=== PATIENT | female | born 1980 | race Caucasian/White ===

== ENCOUNTER 2017-12-13 17:01 | Inpatient (IN) | payer BC, OTHER ==
[2017-12-13] VITALS (9 sets, daily range): BP systolic 100–126; BP diastolic 53–75; PULSE 87–125; RESP 18–20; TEMP 98.3–100.9; O2SAT 96–100
[~2017-12-13 17:01] MED LIST: ADDE5TAB PO; IBUP600T26 PO; ROBA750T3 PO
[2017-12-13] MEDS ORDERED: IBUPROFEN 600 MG TAB PO ONE (17:15)
[2017-12-13] MEDS ORDERED: ADDE30XR PO (17:17)
--- NOTE | 2017-12-13 18:01 | PD ---
HPI Chief Complaint: Cold / Flu Symptoms Time Seen by Provider: 17:43 Travel History International Travel<30 days: No Contact w/Intl Traveler<30days: No Traveled to known affect area: No History of Present Illness HPI 37-year-old female presents sudden onset of fever, body aches, chills, sore throat that developed at about 1 PM this afternoon. She denies taking medication prior to arrival. She denies any other concurrent complaints to me on initial evaluation. She denies any specific sick contacts. She states she feels worse when she moves around. PFSH Past Medical History ADHD: Yes Cerebrovascular Accident: No Diabetes: No Reproductive: Yes Myocardial Infarction: No Seizures: No Tetanus Vaccination: > 5 Years Influenza Vaccination: No ?: Unknown LMP: NOV 23 2017 Past Surgical History Surgical History: No Previous Surgery Social History Alcohol Use: No Tobacco Use: Yes (1 07/01-1 PPD) Substance Use: No Allergies-Medications (Allergen,Severity, Reaction): Coded Allergies: No Known Allergies (Unverified Allergy, Unknown, 12/13/17) Reported Meds & Prescriptions Reported Meds & Active Scripts Active Reported Adderall Xr 24 HR (Amphetamine/Dextroamphetamine) 30 Mg Cap 60 Mg PO DAILY Once daily in the morning. Review of Systems Except as stated in HPI: all other systems reviewed are Neg Physical Exam Narrative GENERAL: 37-year-old female who appears uncomfortable SKIN: Focused skin assessment warm/dry. HEAD: Atraumatic. Normocephalic. EYES: Pupils equal and round. No scleral icterus. No injection or drainage. ENT: No nasal bleeding or discharge. Mucous membranes pink and moist. Posterior oropharynx without exudate or erythema NECK: Trachea midline. No JVD. No meningeal signs CARDIOVASCULAR: Regular rate and rhythm. No murmur appreciated. RESPIRATORY: No accessory muscle use. Clear to auscultation. Breath sounds equal bilaterally. GASTROINTESTINAL: Abdomen soft, non-tender, nondistended. Hepatic and splenic margins not palpable. MUSCULOSKELETAL: No obvious deformities. No clubbing. No cyanosis. No edema. NEUROLOGICAL: Awake and alert. No obvious cranial nerve deficits. Motor grossly within normal limits. Normal speech. Data Data Last Documented VS Vital Signs Date Time Temp Pulse Resp B/P (MAP) Pulse Ox O2 Delivery O2 Flow Rate FiO2 12/13/17 20:20 100.4 103 18 113/59 (77) 100 Room Air Orders Orders Ibuprofen (Motrin) (12/13/17 17:15) Group A Rapid Strep Screen (12/13/17 17:23) Influenzae A/B Antigen (12/13/17 17:23) Urinalysis - C+S If Indicated (12/13/17 17:49) Chest, Pa & Lat (12/13/17 ) Strep Culture (Group A) (12/13/17 17:30) Ed Urine Pregnancytest Poc (12/13/17 18:01) Complete Blood Count With Diff (12/13/17 18:58) Comprehensive Metabolic Panel (12/13/17 18:58) Lactic Acid Sepsis Protocol (12/13/17 18:58) Magnesium (Mg) (12/13/17 18:58) Phosphorus (Po4) (12/13/17 18:58) Blood Culture (12/13/17 18:58) Ecg Monitoring (12/13/17 18:58) Iv Access Insert/Monitor (12/13/17 18:58) Oximetry (12/13/17 18:58) Creatine Kinase (Cpk) (12/13/17 18:58) Sodium Chlor 0.9% 1000 Ml Inj (Ns 1000 M (12/13/17 19:00) ^ Straight Catheter (12/13/17 21:01) Cath For Specimen (12/13/17 21:01) Admit Order (Ed Use Only) (12/13/17 21:36) Labs Laboratory Tests Test 12/13/17 19:25 12/13/17 21:10 White Blood Count 12.7 TH/MM3 Red Blood Count 4.20 MIL/MM3 Hemoglobin 13.6 GM/DL Hematocrit 38.7 % Mean Corpuscular Volume 92.2 FL Mean Corpuscular Hemoglobin 32.3 PG Mean Corpuscular Hemoglobin Concent 35.0 % Red Cell Distribution Width 11.8 % Platelet Count 190 TH/MM3 Mean Platelet Volume 7.7 FL Neutrophils (%) (Auto) 89.9 % Lymphocytes (%) (Auto) 7.7 % Monocytes (%) (Auto) 1.9 % Eosinophils (%) (Auto) 0.1 % Basophils (%) (Auto) 0.4 % Neutrophils # (Auto) 11.4 TH/MM3 Lymphocytes # (Auto) 1.0 TH/MM3 Monocytes # (Auto) 0.2 TH/MM3 Eosinophils # (Auto) 0.0 TH/MM3 Basophils # (Auto) 0.1 TH/MM3 CBC Comment DIFF FINAL Differential Comment Blood Urea Nitrogen 8 MG/DL Creatinine 0.74 MG/DL Random Glucose 101 MG/DL Total Protein 7.2 GM/DL Albumin 3.6 GM/DL Calcium Level 8.5 MG/DL Phosphorus Level 1.5 MG/DL Magnesium Level 2.1 MG/DL Alkaline Phosphatase 55 U/L Aspartate Amino Transf (AST/SGOT) 10 U/L Alanine Aminotransferase (ALT/SGPT) 16 U/L Total Bilirubin 0.9 MG/DL Sodium Level 137 MEQ/L Potassium Level 3.5 MEQ/L Chloride Level 105 MEQ/L Carbon Dioxide Level 22.6 MEQ/L Anion Gap 9 MEQ/L Estimat Glomerular Filtration Rate 87 ML/MIN Lactic Acid Level 0.9 mmol/L Total Creatine Kinase 60 U/L Urine Color YELLOW Urine Turbidity CLEAR Urine pH 8.0 Urine Specific [place] 1.010 Urine Protein NEG mg/dL Urine Glucose (UA) NEG mg/dL Urine Ketones 80 OR GREATER mg/dL Urine Occult Blood NEG Urine Nitrite NEG Urine Bilirubin NEG Urine Urobilinogen 2.0 MG/DL Urine Leukocyte Esterase NEG Urine Squamous Epithelial Cells 0-5 /hpf Microscopic Urinalysis Comment CULT NOT INDICATED MDM Medical Decision Making Medical Screen Exam Complete: Yes Emergency Medical Condition: Yes Medical Record Reviewed: Yes (pmh confirmed) Interpretation(s) strep and flu are negative Differential Diagnosis Pneumonia, UTI, pharyngitis, URI Narrative Course We will check strep, influenza, urinalysis, chest x-ray and dose with Motrin and reevaluate patient states her body aches are much worse and her muscles are tightening too much, will add on labs to rule out other process Physician Communication Physician Communication dr mixon to follow labs and ua and reevaluate Adamaris Taylor MD Dec 13, 2017 18:01
--- NOTE | 2017-12-13 18:26 | RADRPT ---
EXAM DATE: 12/13/2017 6:22 PM EDT AGE/SEX: 37 years / Female INDICATIONS: Fever, all over body pain, unable to feel hands and feet or move arms or legs CLINICAL DATA: This is the patient's initial encounter. Patient reports that signs and symptoms have been present for 1 day and indicates a pain score of 10/10. MEDICAL/SURGICAL HISTORY: None. None. COMPARISON: No prior exams available for comparison. FINDINGS: PA and lateral views of the chest demonstrate the lungs to be symmetrically aerated without evidence of mass, infiltrate or effusion. The cardiomediastinal contours are unremarkable. Osseous structures are intact. CONCLUSION: No active disease. Electronically signed by: Farzad Miranda MD 12/13/2017 6:24 PM EDT
[2017-12-13] MEDS ORDERED: SODIUM CHLOR 0.9% 1000 ML INJ 1,000 ML IV ONE (19:00)
[2017-12-13 19:41] LABS: AUTOMATED NEUTROPHIL # 11.4 TH/MM3 (1.8-7.7); BASOPHIL # 0.1 TH/MM3 (0-0.2); BASOPHIL % 0.4 % (0.0-2.0); EOSINOPHIL % 0.1 % (0.0-4.0); HEMATOCRIT 38.7 % (35.0-46.0); HEMOGLOBIN 13.6 GM/DL (11.6-15.3); LYMPH % 7.7 % (9.0-44.0); MEAN CELL VOLUME 92.2 FL (80.0-100.0); MEAN CORPUSCULAR HEMOGLOBIN 32.3 PG (27.0-34.0); MEAN PLATELET VOLUME 7.7 FL (7.0-11.0); MONO % 1.9 % (0.0-8.0); MONOCYTE # 0.2 TH/MM3 (0-0.9); NEUT % 89.9 % (16.0-70.0); PLATELET COUNT 190 TH/MM3 (150-450); RED CELL DISTRIBUTION WIDTH 11.8 % (11.6-17.2); WHITE BLOOD COUNT 12.7 TH/MM3 (4.0-11.0)
[2017-12-13 19:51] LABS: CHLORIDE 105 MEQ/L (98-107); SODIUM (NA) 137 MEQ/L (136-145)
[2017-12-13 19:55] LABS: ALBUMIN 3.6 GM/DL (3.4-5.0); BICARBONATE 22.6 MEQ/L (21.0-32.0); BLOOD UREA NITROGEN 8 MG/DL (7-18); CALCIUM 8.5 MG/DL (8.5-10.1); GLUCOSE,RANDOM 101 MG/DL (74-106); MAGNESIUM 2.1 MG/DL (1.5-2.5)
[2017-12-13 19:58] LABS: ALT (GPT) 16 U/L (10-53); AST (GOT) 10 U/L (15-37); CREATININE 0.74 MG/DL (0.50-1.00); GLOMERULAR FILTRATION RATE 87 ML/MIN (>89)
[2017-12-13 19:59] LABS: PHOSPHORUS 1.5 MG/DL (2.5-4.9)
[2017-12-13 20:00] LABS: TOTAL BILIRUBIN ADULT 0.9 MG/DL (0.2-1.0); TOTAL PROTEIN 7.2 GM/DL (6.4-8.2)
[2017-12-13 20:01] LABS: ALKALINE PHOSPHATASE 55 U/L (45-117)
--- NOTE | 2017-12-13 21:09 | PD ---
Physical Exam Time Seen by Provider: 21:02 Narrative The patient was transferred to nm by Dr. Peralta to make a check laboratory results and make a disposition, likely discharge. Data Data Last Documented VS Vital Signs Date Time Temp Pulse Resp B/P (MAP) Pulse Ox O2 Delivery O2 Flow Rate FiO2 12/13/17 20:20 100.4 103 18 113/59 (77) 100 Room Air Orders Orders Ibuprofen (Motrin) (12/13/17 17:15) Group A Rapid Strep Screen (12/13/17 17:23) Influenzae A/B Antigen (12/13/17 17:23) Urinalysis - C+S If Indicated (12/13/17 17:49) Chest, Pa & Lat (12/13/17 ) Strep Culture (Group A) (12/13/17 17:30) Ed Urine Pregnancytest Poc (12/13/17 18:01) Complete Blood Count With Diff (12/13/17 18:58) Comprehensive Metabolic Panel (12/13/17 18:58) Lactic Acid Sepsis Protocol (12/13/17 18:58) Magnesium (Mg) (12/13/17 18:58) Phosphorus (Po4) (12/13/17 18:58) Blood Culture (12/13/17 18:58) Ecg Monitoring (12/13/17 18:58) Iv Access Insert/Monitor (12/13/17 18:58) Oximetry (12/13/17 18:58) Creatine Kinase (Cpk) (12/13/17 18:58) Sodium Chlor 0.9% 1000 Ml Inj (Ns 1000 M (12/13/17 19:00) ^ Straight Catheter (12/13/17 21:01) Cath For Specimen (12/13/17 21:01) Labs Laboratory Tests Test 12/13/17 19:25 White Blood Count 12.7 TH/MM3 Red Blood Count 4.20 MIL/MM3 Hemoglobin 13.6 GM/DL Hematocrit 38.7 % Mean Corpuscular Volume 92.2 FL Mean Corpuscular Hemoglobin 32.3 PG Mean Corpuscular Hemoglobin Concent 35.0 % Red Cell Distribution Width 11.8 % Platelet Count 190 TH/MM3 Mean Platelet Volume 7.7 FL Neutrophils (%) (Auto) 89.9 % Lymphocytes (%) (Auto) 7.7 % Monocytes (%) (Auto) 1.9 % Eosinophils (%) (Auto) 0.1 % Basophils (%) (Auto) 0.4 % Neutrophils # (Auto) 11.4 TH/MM3 Lymphocytes # (Auto) 1.0 TH/MM3 Monocytes # (Auto) 0.2 TH/MM3 Eosinophils # (Auto) 0.0 TH/MM3 Basophils # (Auto) 0.1 TH/MM3 CBC Comment DIFF FINAL Differential Comment Blood Urea Nitrogen 8 MG/DL Creatinine 0.74 MG/DL Random Glucose 101 MG/DL Total Protein 7.2 GM/DL Albumin 3.6 GM/DL Calcium Level 8.5 MG/DL Phosphorus Level 1.5 MG/DL Magnesium Level 2.1 MG/DL Alkaline Phosphatase 55 U/L Aspartate Amino Transf (AST/SGOT) 10 U/L Alanine Aminotransferase (ALT/SGPT) 16 U/L Total Bilirubin 0.9 MG/DL Sodium Level 137 MEQ/L Potassium Level 3.5 MEQ/L Chloride Level 105 MEQ/L Carbon Dioxide Level 22.6 MEQ/L Anion Gap 9 MEQ/L Estimat Glomerular Filtration Rate 87 ML/MIN Lactic Acid Level 0.9 mmol/L Total Creatine Kinase 60 U/L [facility] Medical Record Reviewed: Yes Supervised Visit with CHAN: No Interpretation(s) The CBC is 12,700 with 90% neutrophils. The complete metabolic profile shows a GFR of 87 but is otherwise normal. The phosphorus is 1.5. The lactic acid is normal at 0.9. The strep screen is negative and the flu test is negative. Differential Diagnosis Sepsis, anxiety, flu syndrome, viral syndrome, pneumonia, strep pharyngitis, conversion reaction Narrative Course The patient is also going through a separation from her about for 5 months. She went out apparently and contracted gonorrhea and she was treated for this 3 weeks ago. The patient complains of aching pains in her legs and joints and arms. Later on she said she cannot move her arms, she cannot pick them up and she cannot move her legs, she did not pick them up. She has good sensation to her arms and legs. The hand drop into face test showed that the patient held her arm up so that the hand did not hit her face. This was done on both arms. We cannot find the source of her infection. The patient will be admitted for 23 hour observation. Blood cultures are pending. I discussed the patient with Dr. Douglas, the patient will be 23 hour observation to her. The patient does have a conversion reaction and cannot walk or move her arms so at this point she cannot go home. Sepsis Criteria SIRS Criteria (2 or more): Heart rate over 90, WBC > 50944, < 4000 or > 10% bands Criteria Outcome: Meets SIRS criteria Physician Communication Physician Communication I discussed the patient with Dr. Douglas, the patient will be admitted to her. Diagnosis Primary Impression: SIRS (systemic inflammatory response syndrome) Additional Impressions: Conversion reaction Inability to move arms or legs Admitting Information Admitting Physician Requests: Observation Rafael Morris MD Dec 13, 2017 21:08
[2017-12-13] MEDS ORDERED: BISACODYL 10 MG SUPP RECTAL PRN (21:45)
[2017-12-13] MEDS ORDERED: SODIUM CHLORIDE 0.9% FLUSH 10 ML FLUSH IV FLUSH PRN (21:45)
[2017-12-13] MEDS ORDERED: LACTULOSE SYRUP 20 GM/30 ML CUP PO PRN (21:45)
[2017-12-13] MEDS ORDERED: MAGNESIUM HYDROXIDE SUSP 30 ML CUP PO PRN (21:45)
[2017-12-13] MEDS ORDERED: SENNOSIDES 8.6 MG TAB PO PRN (21:45)
[2017-12-13 21:58] LABS: BILIRUBIN, URINE NEG (NEG); BLOOD, URINE NEG (NEG); GLUCOSE,URINE NEG (NEG); KETONE, URINE 80 OR GREATER mg/dL (NEG); NITRITE,URINE NEG (NEG); URINE COLOR YELLOW (YELLW/STRAW); URINE LEUKOCYTE ESTERASE NEG (NEG)
[2017-12-13 22:11] LABS: SQUAMOUS EPITHELIAL CELL URINE 0-5 /hpf (0-5)
[2017-12-13] MEDS: SODIUM CHLOR 0.9% 1000 ML INJ 1,000 ML IV SCH (22:24)
[2017-12-13] MEDS: ALPRAZolam 0.25 MG TAB PO PRN (22:24)
[2017-12-14 04:00] VITALS: BP_SYST 100; BP_SYST 131; BP_DIAS 79; PULSE 112; RESP 13; RESP 20; TEMP 101.7; O2SAT 98
[2017-12-14] MEDS: ACETAMINOPHEN 325 MG TAB PO PRN ×2 (05:09→14:16)
[2017-12-14 07:27] VITALS: BP 108/55; PULSE 99; RESP 20; TEMP 98.6; O2SAT 99
[2017-12-14 07:34] LABS: BASOPHIL % 0.1 % (0.0-2.0); EOSINOPHIL % 0.1 % (0.0-4.0); HEMATOCRIT 38.3 % (35.0-46.0); HEMOGLOBIN 12.7 GM/DL (11.6-15.3); LYMPH % 4.8 % (9.0-44.0); LYMPHOCYTE # 0.6 TH/MM3 (1.0-4.8); MEAN CELL VOLUME 93.3 FL (80.0-100.0); MEAN CORPUSCULAR HEMOGLOBIN 30.9 PG (27.0-34.0); MEAN CORPUSCULAR HGB CONC 33.1 % (32.0-36.0); MONO % 3.4 % (0.0-8.0); MONOCYTE # 0.4 TH/MM3 (0-0.9); NEUT % 91.6 % (16.0-70.0); PLATELET COUNT 173 TH/MM3 (150-450); RED BLOOD COUNT 4.11 MIL/MM3 (4.00-5.30); RED CELL DISTRIBUTION WIDTH 11.7 % (11.6-17.2)
[2017-12-14] MEDS: SODIUM CHLOR 0.9% 1000 ML INJ 1,000 ML IV SCH ×2 (07:39→20:26)
[2017-12-14 07:47] LABS: CHLORIDE 109 MEQ/L (98-107); SODIUM (NA) 140 MEQ/L (136-145)
[2017-12-14 07:53] LABS: ALBUMIN 3.1 GM/DL (3.4-5.0)
[2017-12-14 07:54] LABS: BICARBONATE 22.2 MEQ/L (21.0-32.0); BLOOD UREA NITROGEN 8 MG/DL (7-18); GLUCOSE,RANDOM 115 MG/DL (74-106)
[2017-12-14 07:57] LABS: ALT (GPT) 11 U/L (10-53); AST (GOT) 11 U/L (15-37); CREATININE 0.69 MG/DL (0.50-1.00); GLOMERULAR FILTRATION RATE 95 ML/MIN (>89)
[2017-12-14 07:58] LABS: TOTAL BILIRUBIN ADULT 0.8 MG/DL (0.2-1.0); TOTAL PROTEIN 6.7 GM/DL (6.4-8.2)
[2017-12-14 07:59] LABS: ALKALINE PHOSPHATASE 51 U/L (45-117)
--- NOTE | 2017-12-14 08:11 | HHI.HP ---
[facility] Papito Mcmullen, DO Admission Diagnosis SIRS, conversion reaction, inability to move arms or legs Diagnoses: (1) SIRS (systemic inflammatory response syndrome) Chief Complaint: Fever Chills Sore throat Vaginal discharge Travel History International Travel<30 Days: No Contact w/Intl Traveler <30 Da: No Traveled to Known Affected Are: No Sepsis Criteria SIRS Criteria (2 or more): Temp > 100.9 or < 96.8, Heart rate over 90, WBC > 62023, < 4000 or > 10% bands Criteria Outcome: Meets SIRS criteria History of Present Illness This is a 37-year-old female patient with a known medical history of ADHD presented to the ED with sudden onset of fever, chills, sore throat and generalized muscle aches as well as continued vaginal discharge from recent diagnosis of gonorrhea. Patient was recently treated for gonorrhea 2 weeks ago , finished dose of azithromycin completely as well as given 1 dose of Rocephin IM. Since that time patient states she did feel improved after antibiotics although her vaginal discharge continued. She does admit to a subjective fever of 101 at home. She does admit to poor appetite for the last couple days. Does admit to associated fever, chills, rigors, dizziness. She denies any dysuria. Denies any nausea, vomiting or diarrhea. Patient does not follow with the [employer], denies any recent pelvic exam or Pap smear. It should be noted that patient is going through a separation with her and has recently been with a new sex partner. LMP was November 23, 2017. She is having active vaginal bleeding at this time. Review of Systems Constitutional: COMPLAINS OF: Diaphoretic episodes, Fatigue, Fever, Chills Eyes: DENIES: Diplopia Ears, nose, mouth, throat: DENIES: Vertigo Respiratory: DENIES: Cough, Sputum production, Shortness of breath Cardiovascular: DENIES: Chest pain, Palpitations, Orthopnea Gastrointestinal: COMPLAINS OF: Abdominal pain, Nausea, Vomiting, DENIES: Black stools, Bloody stools, Constipation, Diarrhea Genitourinary: COMPLAINS OF: Vaginal discharge, DENIES: Urinary frequency, Urinary incontinence, Urgency, Hematuria, Dysuria Musculoskeletal: COMPLAINS OF: Joint pain, Muscle aches Hematologic/lymphatic: DENIES: Bruising Immunologic/allergic: DENIES: Eczema Neurologic: DENIES: Abnormal gait Psychiatric: COMPLAINS OF: Anxiety Except as stated in HPI: all other systems reviewed are Neg Past Family Social History Past Medical History ADHD Past Surgical History No previous surgeries. Reported Medications Active Reported Adderall Xr 24 HR (Amphetamine/Dextroamphetamine) 30 Mg Cap 60 Mg PO DAILY Once daily in the morning. Allergies: Coded Allergies: No Known Allergies (Unverified Allergy, Unknown, 12/13/17) Active Ordered Medications Current Medications Medications (Trade) Dose Ordered Sig/Roselia Route Start Time Stop Time Status Last Admin (Xanax) 0.25 mg Q8H PRN PO 12/13/17 21:45 12/13/17 22:24 Sodium Chloride 1,000 ml @ 100 mls/hr Q10H IV 12/13/17 21:39 12/14/17 07:39 (NS Flush) 2 ml UNSCH PRN IV FLUSH 12/13/17 21:45 (NS Flush) 2 ml BID IV FLUSH 12/14/17 09:00 (Tylenol) 650 mg Q6H PRN PO 12/13/17 21:45 12/14/17 05:09 (Ely-Colace) 1 tab BID PO 12/14/17 09:00 (Milk Of Magnesia Liq) 30 ml Q12H PRN PO 12/13/17 21:45 (Senokot) 17.2 mg Q12H PRN PO 12/13/17 21:45 (Dulcolax Supp) 10 mg DAILY PRN RECTAL 12/13/17 21:45 (Lactulose Liq) 30 ml DAILY PRN PO 12/13/17 21:45 Doxycycline Hyclate 100 mg/ Sodium Chloride 100 ml @ 100 mls/hr Q12H IV 12/14/17 09:00 12/14/17 09:01 (Mycostatin Liq) 5 ml QID SWISH-SWAL 12/14/17 09:00 12/14/17 09:02 (Diflucan) 150 mg DAILY PO 12/14/17 09:00 12/14/17 09:01 Ceftriaxone Sodium 1000 mg/ Sodium Chloride 100 ml @ 200 mls/hr Q24H IV 12/14/17 09:00 Family History Denies any significant family medical history. Social History Does admit to smoking 1 pack per day of cigarettes for 22 years. Denies any alcohol or illicit drug use. Physical Exam Vital Signs Vital Signs Date Time Temp Pulse Resp B/P (MAP) Pulse Ox O2 Delivery O2 Flow Rate FiO2 12/14/17 07:27 98.6 99 20 108/55 (72) 99 12/14/17 04:00 101.7 112 20 131/79 (96) 98 12/14/17 04:00 101.7 112 13 100/ 12/13/17 23:00 88 12/13/17 22:20 98.3 87 20 100/63 (75) 100 12/13/17 22:05 12/13/17 21:45 94 18 111/53 (72) 97 Room Air 12/13/17 20:20 100.4 103 18 113/59 (77) 100 Room Air 12/13/17 19:20 18 96 Room Air 12/13/17 19:20 101 18 119/65 (83) 97 Room Air 12/13/17 19:10 101 18 97 Room Air 12/13/17 18:53 99.8 102 18 108/75 (86) 100 Room Air 12/13/17 17:19 100 Room Air 12/13/17 17:17 100.7 120 18 126/71 (89) 100 Room Air 12/13/17 17:15 Room Air 12/13/17 17:03 100.7 125 20 126/71 (89) Physical Exam GENERAL: Well-developed, well-nourished patient in NAD. Multiple tattoos. Tearful. SKIN: Warm and dry. No rash. HEAD: Normocephalic. Atraumatic. EYES: Pupils equal and round. No scleral icterus. No injection or drainage. ENT: No nasal bleeding or discharge. Mucous membranes, erythema noted, oral thrush, white exudates noted. NECK: Supple. Trachea midline. CARDIOVASCULAR: Regular rate and rhythm. S1, S2 noted. No murmur appreciated. RESPIRATORY: No accessory muscle use. Clear to auscultation. Breath sounds equal bilaterally. GASTROINTESTINAL: Abdomen soft, nondistended. Normoactive bowel sounds x4. Diffuse tenderness to palpation. MUSCULOSKELETAL: No obvious deformities. Extremities without clubbing, cyanosis , or edema. NEUROLOGICAL: Awake and alert. No obvious cranial nerve deficits. Motor grossly within normal limits. 4/5 muscle strength in bilateral upper and lower extremities. Normal speech. Laboratory Laboratory Tests Test 12/13/17 19:25 12/13/17 21:10 12/14/17 06:49 White Blood Count 12.7 12.0 Red Blood Count 4.20 4.11 Hemoglobin 13.6 12.7 Hematocrit 38.7 38.3 Mean Corpuscular Volume 92.2 93.3 Mean Corpuscular Hemoglobin 32.3 30.9 Mean Corpuscular Hemoglobin Concent 35.0 33.1 Red Cell Distribution Width 11.8 11.7 Platelet Count 190 173 Mean Platelet Volume 7.7 8.0 Neutrophils (%) (Auto) 89.9 91.6 Lymphocytes (%) (Auto) 7.7 4.8 Monocytes (%) (Auto) 1.9 3.4 Eosinophils (%) (Auto) 0.1 0.1 Basophils (%) (Auto) 0.4 0.1 Neutrophils # (Auto) 11.4 11.0 Lymphocytes # (Auto) 1.0 0.6 Monocytes # (Auto) 0.2 0.4 Eosinophils # (Auto) 0.0 0.0 Basophils # (Auto) 0.1 0.0 CBC Comment DIFF FINAL DIFF FINAL Differential Comment Blood Urea Nitrogen 8 8 Creatinine 0.74 0.69 Random Glucose 101 115 Total Protein 7.2 6.7 Albumin 3.6 3.1 Calcium Level 8.5 8.0 Phosphorus Level 1.5 Magnesium Level 2.1 Alkaline Phosphatase 55 51 Aspartate Amino Transf (AST/SGOT) 10 11 Alanine Aminotransferase (ALT/SGPT) 16 11 Total Bilirubin 0.9 0.8 Sodium Level 137 140 Potassium Level 3.5 3.6 Chloride Level 105 109 Carbon Dioxide Level 22.6 22.2 Anion Gap 9 9 Estimat Glomerular Filtration Rate 87 95 Lactic Acid Level 0.9 Total Creatine Kinase 60 Urine Color YELLOW Urine Turbidity CLEAR Urine pH 8.0 Urine Specific [place] 1.010 Urine Protein NEG Urine Glucose (UA) NEG Urine Ketones 80 OR GREATER Urine Occult Blood NEG Urine Nitrite NEG Urine Bilirubin NEG Urine Urobilinogen 2.0 Urine Leukocyte Esterase NEG Urine Squamous Epithelial Cells 0-5 Microscopic Urinalysis Comment CULT NOT INDICATED Date/Time Source Procedure Growth Status 12/13/17 19:32 Blood Peripheral Aerobic Blood Culture Pending Received 12/13/17 19:32 Blood Peripheral Anaerobic Blood Culture Pending Received 12/13/17 17:30 Throat Group A Streptococcus Screen Pending Received Result Diagram: 12/14/17 0649 12/14/17 0649 Imaging Last Impressions Chest X-Ray 12/13/17 0000 Signed Impressions: CONCLUSION: No active disease. Septic Shock Reassessment Septic shock perfusion: reassessment completed Caprini VTE Risk Assessment Caprini VTE Risk Assessment: No/Low Risk (score <= 1) Caprini Risk Assessment Model Point Value = 1 Point Value = 2 Point Value = 3 Point Value = 5 Age 41-60 Minor surgery BMI > 25 kg/m2 Swollen legs Varicose veins or History of unexplained or recurrent spontaneous Oral contraceptives or hormone replacement Sepsis (< 1 month) Serious lung disease, including pneumonia (< 1 month) Abnormal pulmonary function Acute myocardial infarction Congestive heart failure (< 1 month) History of inflammatory bowel disease Medical patient at bed rest Age 61-74 Arthroscopic surgery Major open surgery (> 45 min) Laparoscopic surgery (> 45 min) Malignancy Confined to bed (> 72 hours) Immobilizing plaster cast Central venous access Age >= 75 History of VTE Family history of VTE Factor V Leiden Prothrombin [id number] Lupus anticoagulant Anticardiolipin antibodies Elevated serum homocysteine Heparin-induced thrombocytopenia Other congenital or acquired thrombophilia Stroke (< 1 month) Elective arthroplasty Hip, pelvis, or leg fracture Acute spinal cord injury (< 1 month) Prophylaxis Regimen Total Risk Factor Score Risk Level Prophylaxis Regimen 0-1 Low Early ambulation 2 Moderate Order ONE of the following: *Sequential Compression Device (SCD) *Heparin 5000 units SQ BID 3-4 Higher Order ONE of the following medications: *Heparin 5000 units SQ TID *Enoxaparin/Lovenox 40 mg SQ daily (WT < 150 kg, CrCl > 30 mL/min) *Enoxaparin/Lovenox 30 mg SQ daily (WT < 150 kg, CrCl > 10-29 mL/min) *Enoxaparin/Lovenox 30 mg SQ BID (WT < 150 kg, CrCl > 30 mL/min) AND/OR *Sequential Compression Device (SCD) 5 or more Highest Order ONE of the following medications: *Heparin 5000 units SQ TID (Preferred with Epidurals) *Enoxaparin/Lovenox 40 mg SQ daily (WT < 150 kg, CrCl > 30 mL/min) *Enoxaparin/Lovenox 30 mg SQ daily (WT < 150 kg, CrCl > 10-29 mL/min) *Enoxaparin/Lovenox 30 mg SQ BID (WT < 150 kg, CrCl > 30 mL/min) AND *Sequential Compression Device (SCD) Assessment and Plan Assessment and Plan This is a 37-year-old female patient with a known medical history of ADHD presented to the ED with sudden onset of fever, chills, sore throat and generalized muscle aches as well as continued vaginal discharge from recent diagnosis of gonorrhea. SIRS - Recent outpatient treatment for gonorrhea with Azithromycin and Rocephin IM. Rule out possible PID. - Meets criteria with fever, 101.7, tachycardiac and leukocytosis WBC 12.7. Source unknown at this time, suspect [employer] related - Will obtain abdominal/pelvis CT for diffuse abdominal tenderness and reports of vaginal discharge. Follow report. - Consult placed to [employer], input and recommendations pending. As well as US of pelvis. - Will check HIV and Hepatitis panel. As well as PCR gonorrhea and chlamydia. - Blood cultures pending, follow growth. UA negative. Chest x-ray reviewed, no acute disease. - Will place on Doxycycline and Rocephin IV for now. Patient did complete Azithromycin and one dose of Rocephin IM outpatient. - Acetaminophen for fever as needed. Oral thrust Throat exudates - Will order Nystatin s&s. Diflucan for now. Anxiety: Continue home Xanax. DVT prophylaxis: SCDs. Joanna Villavicencio Dec 14, 2017 08:11
[2017-12-14] MEDS: SODIUM CHLORIDE 0.9% FLUSH 10 ML FLUSH IV FLUSH SCH ×2 (09:00→20:26)
[2017-12-14] MEDS ORDERED: DOXYCYCLINE INJ 100 MG in SODIUM CHLORIDE 0.9% INJ 100 ML IV SCH (09:00)
[2017-12-14] MEDS: DOCUSATE SODIUM 50 MG/SENNA 8.6 MG TAB PO SCH ×2 (09:00→20:26)
[2017-12-14] MEDS: FLUCONAZOLE 100 MG TAB PO SCH (09:01)
[2017-12-14] MEDS: NYSTATIN SUSP 500,000 U/5 ML CUP SWISH-SWAL SCH ×4 (09:02→20:26)
[2017-12-14] MEDS: cefTRIAXone INJ 1,000 MG in SODIUM CHLORIDE 0.9% INJ 100 ML IV SCH (10:07)
--- NOTE | 2017-12-14 11:15 | PD.CONS ---
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 Patient states that 2 weeks ago she was treated empirically by her PCP Dr. Gold for gonorrhea, she never tested positive but has been active with her (who she is but not from) without protection who did test positive. She was treated with Rocephin and azithromycin per her report. At that time she had abdominal pain but denies any fever, she states that her discharge improved but she still had low-grade pelvic pain. Over the past week she has been feeling abdominal discomfort, lower extremity soreness, chills, fever and dizzy. She has decreased appetite and some nausea, no emesis diarrhea constipation, denies cough, congestion or chest pain. She does say that her sore throat and her lower back pain are the most bothersome symptoms at this time. She denies any dysuria, urgency or frequency. She denies any history of STI's, in the past months she has been active with 3- 4 new partners using condoms inconsistently. She does not use anything other than condoms to prevent . She does not desire any for future children. She has not seen a appliance technician in over 11 years. She has regular monthly cycles, however she states her current cycle is happening a week earlier than she typically expects. Review of Systems Constitutional: DENIES: Fever, Chills, Change in appetite Endocrine: DENIES: Heat/cold intolerance Eyes: DENIES: Blurred vision, Eye pain Past Family Social History Allergies: Coded Allergies: No Known Allergies (Unverified Allergy, Unknown, 12/13/17) Past Medical History 1. ADHD 2. Tobacco use Past Surgical History None Reported Medications Adderall Family History Denies any significant family history. Social History Smokes 1-1-1/2 packs per day, denies any excessive alcohol or drug use. Lives in [place], is but from her [place]. 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 [employer] MAN history: -LMP: Current, typically has regular monthly cycles. -Denies any history of known STI's. -Denies any history of abnormal Pap smears, but she states her most recent was 11 years ago. Physical Exam Vital Signs Vital Signs Date Time Temp Pulse Resp B/P (MAP) Pulse Ox O2 Delivery O2 Flow Rate FiO2 12/14/17 07:27 98.6 99 20 108/55 (72) 99 12/14/17 04:00 101.7 112 20 131/79 (96) 98 12/14/17 04:00 101.7 112 13 100/ 12/13/17 23:00 88 12/13/17 22:20 98.3 87 20 100/63 (75) 100 12/13/17 22:05 12/13/17 21:45 94 18 111/53 (72) 97 Room Air 12/13/17 20:20 100.4 103 18 113/59 (77) 100 Room Air 12/13/17 19:20 18 96 Room Air 12/13/17 19:20 101 18 119/65 (83) 97 Room Air 12/13/17 19:10 101 18 97 Room Air 12/13/17 18:53 99.8 102 18 108/75 (86) 100 Room Air 12/13/17 17:19 100 Room Air 12/13/17 17:17 100.7 120 18 126/71 (89) 100 Room Air 12/13/17 17:15 Room Air 12/13/17 17:03 100.7 125 20 126/71 (89) Physical Exam GENERAL: This is a well-nourished, well-developed patient, in no apparent distress. SKIN: No rashes, ecchymoses or lesions. Cool and dry. HEAD: Atraumatic. Normocephalic. No temporal or scalp tenderness. EYES: Pupils equal round and reactive. Extraocular motions intact. No scleral icterus. No injection or drainage. NECK: Trachea midline. No JVD or lymphadenopathy. Supple, nontender, no meningeal signs. CARDIOVASCULAR: Regular rate and rhythm without murmurs, gallops, or rubs. RESPIRATORY: Clear to auscultation. Breath sounds equal bilaterally. No wheezes , rales, or rhonchi. GASTROINTESTINAL: Abdomen soft, non-tender, nondistended. No hepato-splenomegaly , or palpable masses. No guarding. : Normal external female genitalia, speculum inserted, liquid dark blood in the posterior fornix, cleared away, cervix normal-appearing, slow ooze but no heavy active bleeding. No purulence. Pelvic exam revealed some cervical motion tenderness, no palpable adnexal masses. MUSCULOSKELETAL: Extremities without clubbing, cyanosis, or edema. No joint tenderness, effusion, or edema noted. No calf tenderness. Negative Homans sign bilaterally. NEUROLOGICAL: Awake and alert. Cranial nerves II through XII intact. Motor and sensory grossly within normal limits. Normal speech. Laboratory Laboratory Tests Test 12/13/17 19:25 12/13/17 21:10 12/14/17 06:49 12/14/17 09:30 White Blood Count 12.7 12.0 Red Blood Count 4.20 4.11 Hemoglobin 13.6 12.7 Hematocrit 38.7 38.3 Mean Corpuscular Volume 92.2 93.3 Mean Corpuscular Hemoglobin 32.3 30.9 Mean Corpuscular Hemoglobin Concent 35.0 33.1 Red Cell Distribution Width 11.8 11.7 Platelet Count 190 173 Mean Platelet Volume 7.7 8.0 Neutrophils (%) (Auto) 89.9 91.6 Lymphocytes (%) (Auto) 7.7 4.8 Monocytes (%) (Auto) 1.9 3.4 Eosinophils (%) (Auto) 0.1 0.1 Basophils (%) (Auto) 0.4 0.1 Neutrophils # (Auto) 11.4 11.0 Lymphocytes # (Auto) 1.0 0.6 Monocytes # (Auto) 0.2 0.4 Eosinophils # (Auto) 0.0 0.0 Basophils # (Auto) 0.1 0.0 CBC Comment DIFF FINAL DIFF FINAL Differential Comment Blood Urea Nitrogen 8 8 Creatinine 0.74 0.69 Random Glucose 101 115 Total Protein 7.2 6.7 Albumin 3.6 3.1 Calcium Level 8.5 8.0 Phosphorus Level 1.5 Magnesium Level 2.1 Alkaline Phosphatase 55 51 Aspartate Amino Transf (AST/SGOT) 10 11 Alanine Aminotransferase (ALT/SGPT) 16 11 Total Bilirubin 0.9 0.8 Sodium Level 137 140 Potassium Level 3.5 3.6 Chloride Level 105 109 Carbon Dioxide Level 22.6 22.2 Anion Gap 9 9 Estimat Glomerular Filtration Rate 87 95 Lactic Acid Level 0.9 Total Creatine Kinase 60 Urine Color YELLOW Urine Turbidity CLEAR Urine pH 8.0 Urine Specific [place] 1.010 Urine Protein NEG Urine Glucose (UA) NEG Urine Ketones 80 OR GREATER Urine Occult Blood NEG Urine Nitrite NEG Urine Bilirubin NEG Urine Urobilinogen 2.0 Urine Leukocyte Esterase NEG Urine Squamous Epithelial Cells 0-5 Microscopic Urinalysis Comment CULT NOT INDICATED Human Chorionic Gonadotropin, Quant LESS THAN 1 Date/Time Source Procedure Growth Status 12/13/17 19:32 Blood Peripheral Aerobic Blood Culture Pending Received 12/13/17 19:32 Blood Peripheral Anaerobic Blood Culture Pending Received 12/13/17 17:30 Throat Group A Streptococcus Screen Pending Received Result Diagram: 12/14/17 0649 12/14/17 0649 Assessment and Plan Assessment and Plan 37-year-old female admitted for fever and suspected PID 1. PID: Patient meets criteria given fever, risk factors, and on exam. Typical treatment involves second-generation cephalosporin such as cefotetan 2 g IV every 12 hours or cefoxitin 2 g IV every 6 hours. In addition doxycycline 100 mg p.o. or IV but p.o. is as bioavailable and efficacious as IV. CT and ultrasound pending, if evidence of tubo-ovarian abscess on imaging or trichomonas/bacterial vaginosis are present on wet prep would recommend adding Flagyl 500 mg p.o. twice daily. Once patient make clinical improvement and afebrile 24 hours consider discontinuing IV antibiotics and transitioning to only p.o. Doxy 100mg PO BID and p.o. Flagyl 500mg PO BID (Flagyl only if needed inpatient) to complete her course of 14 days. -Discussed significance and long-term implications of PID with patient, one being infertility patient does not desire future children but strongly suggested her to consider contraception given her inconsistent condom use. And also chronic pelvic pain that can occur. Patient verbalized understanding -Based on patient's high risk sexual behavior, collected STD screening. Thanks for the consult, I will sign off on the patient, if you have any further questions or concerns please call me at [phone] Asim Ronquillo MD Dec 14, 2017 11:15
[2017-12-14 11:16] VITALS: BP 111/60; PULSE 104; RESP 20; TEMP 100.3; O2SAT 100
[2017-12-14] MEDS: ceFOXitin INJ 2 GM in SODIUM CHLORIDE 0.9% INJ 100 ML IV SCH ×3 (13:23→22:56)
--- NOTE | 2017-12-14 13:46 | RADRPT ---
EXAM DATE: 12/14/2017 1:36 PM EDT AGE/SEX: 37 years / Female INDICATIONS: Fever. Possible PID. CLINICAL DATA: This is the patient's initial encounter. Patient reports that signs and symptoms have been present for 2 days and indicates a pain score of 0/10. MEDICAL/SURGICAL HISTORY: . ADHD. Anxiety. None. COMPARISON: No prior exams available for comparison. MEASUREMENTS: Uterus:__10.5 x 6.2 x 5.3 cm Endometrial Stripe:__9 mm Right Ovary:__ 3.8 x 2.6 x 1.9 cm Left Ovary:__ 3.5 x 2.9 x 2.0 cm FINDINGS: Uterus: The myometrium has a homogeneous echotexture. No endometrial fluid. The endometrial stripe h as a homogeneous hyperechogenicity measuring up to 9 mm. There is a hypoechoic area in the region of the cervix which measures 2.9 x 2.7 cm, of uncertain significance. The cervical abnormality appears h ypoechoic on the transabdominal scan and is almost isoechoic to the surrounding cervical tissue on th e endovaginal exam. Right Ovary: No evidence of mass or dominant cyst. Left Ovary: 1 cm oval cyst. No solid lesions. No increased flow by color Doppler. Other: No free fluid. CONCLUSION: 1. Unusual appearance to the cervix; cannot exclude a 2.9 cm mass. 2. No endometrial fluid. 3. Ovarian cysts measuring 1 cm or less. Electronically signed by: Ashish Upton MD 12/14/2017 1:45 PM EDT
[2017-12-14] MEDS ORDERED: DIATRIZOATE MEGLUM/DIATRIZOATE SOD 9 ML CUP PO ONE (14:15)
--- NOTE | 2017-12-14 14:21 | HHI.PR ---
MOVIE EDITOR Note Note reviewed US report and images, cyst mentioned represent a normal ovarian follicle not an abscess. In regards to cervical mass could be a benign fibroid, do not feel this has any relation to her presenting symptoms or is infectious in nature. Will review CT when that is completed. I placed 2 week FU information for the patient in her discharge section of her chart. Asim Ronquillo MD Dec 14, 2017 14:21
[2017-12-14 15:06] VITALS: BP 110/64; PULSE 100; RESP 20; TEMP 101.2; O2SAT 100
[2017-12-14] MEDS ORDERED: IOHEXOL 350 MG/ML 10 ML VIAL (for RAD DIAG) IVCONTRAST ONE (16:24)
--- NOTE | 2017-12-14 16:53 | RADRPT ---
EXAM DATE: 12/14/2017 4:24 PM EDT AGE/SEX: 37 years / Female INDICATIONS: Fever and all over body aches. Diffuse abdominal pain. CLINICAL DATA: This is the patient's initial encounter. Patient reports that signs and symptoms have been present for 1 day and indicates a pain score of 10/10. MEDICAL/SURGICAL HISTORY: None. None. ORAL CONTRAST: Partial prescribed oral contrast ingested. RADIATION DOSE: 13.12 CTDI (mGy) COMPARISON: No prior exams available for comparison. TECHNIQUE: Multiple contiguous axial images were obtained through the abdomen and pelvis following b olus infusion of 85 ml Omnipaque 350 (iohexol) nonionic water-soluble contrast as a single exam dos e. Partial prescribed oral contrast ingested. Using automated exposure control and adjustment of the mA and/or kV according to patient size, the radiation dose was kept as low as reasonably achievable to obtain optimal diagnostic quality images. FINDINGS: Lower Lungs: The visualized lower lungs are clear. Liver: The liver has a homogeneous density without space-occupying lesion. There is no dilation of th e biliary tree. No calcified gallstones. Spleen: Homogeneous density without enlargement. Pancreas: Unremarkable without mass or calcification. Kidneys: Normal in size and shape. No evidence of mass or hydronephrosis. Adrenal Glands: Calcified left adrenal gland with maintenance of normal morphology suggests prior h emorrhage. The right adrenal is normal in appearance.. Aorta: The aorta and proximal iliac vessels are grossly unremarkable without aneurysmal dilation. Bowel/Mesentery: The bowel loops are grossly unremarkable. The cecum and sigmoid colon have a normal configuration. Abdominal Wall: Intact. Retroperitoneum: No evidence of adenopathy in the retrocrural, para-aortic, or deep pelvic regions. Bladder: Contours are smooth. Reproductive Organs: No abnormal masses or calcifications seen.Reproductive organs are normal for ag e. Inguinal: The inguinal region is unremarkable without evidence of adenopathy. Bony Structures: Unremarkable. CONCLUSION: 1. Calcified left adrenal gland probably manifestation of prior hemorrhage. 2. Otherwise negative CT abdomen/pelvis with contrast. Electronically signed by: Ashish Upton MD 12/14/2017 4:51 PM EDT
[2017-12-14 20:00] VITALS: PULSE 96
[2017-12-14] MEDS: DOXYCYCLINE HYCLATE 100 MG TAB PO SCH (20:26)
[2017-12-14] MEDS: ALPRAZolam 0.25 MG TAB PO PRN (20:35)
[2017-12-14 20:47] VITALS: BP 103/67; PULSE 100; RESP 18; TEMP 99.6; O2SAT 99
[2017-12-15] VITALS (7 sets, daily range): BP systolic 101–118; BP diastolic 55–65; PULSE 86–114; RESP 18–20; TEMP 96.8–100.8; O2SAT 95–100
[2017-12-15] MEDS: SODIUM CHLOR 0.9% 1000 ML INJ 1,000 ML IV SCH ×3 (03:50→23:39)
[2017-12-15] MEDS: ceFOXitin INJ 2 GM in SODIUM CHLORIDE 0.9% INJ 100 ML IV SCH ×3 (05:19→17:37)
[2017-12-15] MEDS: DOCUSATE SODIUM 50 MG/SENNA 8.6 MG TAB PO SCH ×2 (07:57→21:11)
[2017-12-15] MEDS: DOXYCYCLINE HYCLATE 100 MG TAB PO SCH ×2 (07:57→21:11)
[2017-12-15] MEDS: NYSTATIN SUSP 500,000 U/5 ML CUP SWISH-SWAL SCH ×4 (07:57→21:11)
[2017-12-15] MEDS: cefTRIAXone INJ 1,000 MG in SODIUM CHLORIDE 0.9% INJ 100 ML IV SCH (07:58)
[2017-12-15] MEDS: FLUCONAZOLE 100 MG TAB PO SCH (07:58)
[2017-12-15] MEDS: SODIUM CHLORIDE 0.9% FLUSH 10 ML FLUSH IV FLUSH SCH ×2 (08:02→21:12)
--- NOTE | 2017-12-15 08:20 | HHI.PR ---
Subjective Remarks Follow-up PID. Patient seen and examined, sitting up in bed with continued complaints of generalized malaise and pain. TMAX 100.8 overnight. Patient still complains of sore throat. Denies any dysuria. Denies any continued vaginal discharge. Objective Vitals Vital Signs Date Time Temp Pulse Resp B/P (MAP) Pulse Ox O2 Delivery O2 Flow Rate FiO2 12/15/17 07:37 97.1 98 18 118/57 (77) 99 12/15/17 04:00 99.8 103 18 117/64 (81) 98 12/15/17 00:01 100.8 111 18 116/58 (77) 95 12/14/17 20:47 99.6 100 18 103/67 (79) 99 12/14/17 20:00 96 12/14/17 15:06 101.2 100 20 110/64 (79) 100 12/14/17 11:16 100.3 104 20 111/60 (77) 100 I/O 12/14/17 12/14/17 12/14/17 12/15/17 12/15/17 12/15/17 07:00 15:00 23:00 07:00 15:00 23:00 Intake Total 1320 ml 840 ml 240 ml Balance 1320 ml 840 ml 240 ml Intake Oral 120 ml 840 ml 240 ml IV Total 1200 ml # Voids 1 4 2 # Bowel Movements 0 Result Diagram: 12/14/17 0649 12/14/17 0649 Imaging Last Impressions Pelvis Ultrasound 12/14/17 0000 Signed Impressions: CONCLUSION: 1. Unusual appearance to the cervix; cannot exclude a 2.9 cm mass. 2. No endometrial fluid. 3. Ovarian cysts measuring 1 cm or less. Abdomen/Pelvis CT 12/14/17 0000 Signed Impressions: CONCLUSION: 1. Calcified left adrenal gland probably manifestation of prior hemorrhage. 2. Otherwise negative CT abdomen/pelvis with contrast. Chest X-Ray 12/13/17 0000 Signed Impressions: CONCLUSION: No active disease. Objective Remarks GENERAL: Well-developed, well-nourished patient in NAD. SKIN: Warm and dry. No rash. HEAD: Normocephalic. Atraumatic. EYES: Pupils equal and round. No scleral icterus. No injection or drainage. ENT: No nasal bleeding or discharge. Mucous membranes pink, no erythema, white exudate noted. NECK: Supple. Trachea midline. CARDIOVASCULAR: Regular rate and rhythm. S1, S2 noted. No murmur appreciated. RESPIRATORY: No accessory muscle use. Clear to auscultation. Breath sounds equal bilaterally. GASTROINTESTINAL: Abdomen soft, non-tender, nondistended. Normoactive bowel sounds x4. MUSCULOSKELETAL: No obvious deformities. Extremities without clubbing, cyanosis , or edema. NEUROLOGICAL: Awake and alert. No obvious cranial nerve deficits. Motor grossly within normal limits. 4/5 muscle strength in bilateral upper and lower extremities. Normal speech. PSYCHIATRIC: Appropriate mood and affect; insight and judgment normal. A/P Problem List: (1) SIRS (systemic inflammatory response syndrome) ICD Code: R65.10 - Systemic inflammatory response syndrome (SIRS) of non- infectious origin without acute organ dysfunction Status: Acute (2) PID (acute pelvic inflammatory disease) ICD Code: N73.0 - Acute parametritis and pelvic cellulitis Assessment and Plan This is a 37-year-old female patient with a known medical history of ADHD presented to the ED with sudden onset of fever, chills, sore throat and generalized muscle aches as well as continued vaginal discharge from recent diagnosis of gonorrhea. Sepsis Suspect source pelvic inflammatory disease - Recent outpatient treatment for gonorrhea with Azithromycin and Rocephin IM. - Met SIRS criteria with fever, 101.7, tachycardiac and leukocytosis WBC 12.7. Source PID. - Spoke to AGRICULTURAL EXTENSION AGENT regarding imaging, nothing acute at this time, abscess ruled out. - Abdomen/pelvis CT showing negative, possible prior cyst hemorrhage. - Abdominal US showing cyst with a normal ovarian follicle, no abscess. Cervical mass suspect a benign fibroid. - Consult placed to AGRICULTURAL EXTENSION AGENT, input and recommendations appreciated. - HIV test negative. Hepatitis negative. Negative for trichomonas, Chlamydia and gonorrhea. - Blood cultures no growth to date. UA negative. Chest x-ray reviewed, no acute disease. - Will continue on Doxycycline PO as well as Cefoxitin per AGRICULTURAL EXTENSION AGENT recommendations. Trichomonas negative, no need for Flagyl at this time. - Acetaminophen for fever as needed. - Supportive care. Group C Beta Strep Oral thrush - Patient complaints of sore throat. Exam positive for exudate. - Will order Nystatin s&s. Diflucan for now. Add magic mouthwash. - Throat culture positive for Group C beta strep. Add Penicillin. - Influenza negative. - Lozenges as needed. - Supportive care. Anxiety: Continue home Xanax. History of ADHD: Continue home Adderall. DVT prophylaxis: SCDs. Discharge Planning Awaiting clinical improvement. Joanna Villavicencio Dec 15, 2017 08:20
[2017-12-15] MEDS ORDERED: BENZOCAINE 6 MG/MENTHOL 10 MG LOZENGE BUCCAL PRN (08:45)
[2017-12-15] MEDS: predniSONE 20 MG TAB PO SCH (10:24)
[2017-12-15] MEDS: NYSTAT/DIPHENHY/LIDO MOUTHWASH (Adult) 120ML SWISH-SWAL SCH ×3 (13:00→21:00)
[2017-12-15 13:55] LABS: RPR SCREEN FOR REFLEX NON-REACTIVE (NON-REACTVE)
[2017-12-15] MEDS: LACTOBACILLUS ACIDOPHILUS TAB PO SCH (17:36)
[2017-12-15] MEDS: PENICILLIN G POTASSIUM INJ 2,500,000 UNITS in SODIUM CHLORIDE 0.9% INJ 100 ML IV SCH ×2 (18:14→21:12)
[2017-12-16] VITALS: BP 107/58; PULSE 75; RESP 20; TEMP 98.4; O2SAT 98
[2017-12-16] MEDS: ceFOXitin INJ 2 GM in SODIUM CHLORIDE 0.9% INJ 100 ML IV SCH ×3 (00:27→12:19)
[2017-12-16] MEDS: PENICILLIN G POTASSIUM INJ 2,500,000 UNITS in SODIUM CHLORIDE 0.9% INJ 100 ML IV SCH ×3 (02:00→09:14)
[2017-12-16 03:40] VITALS: BP 115/72; PULSE 87; RESP 18; TEMP 97.9; O2SAT 97
[2017-12-16 07:50] VITALS: BP 108/6; PULSE 88; RESP 18; TEMP 97.5; O2SAT 99
[2017-12-16] MEDS: DEXTROAMPHETAMINE AMPHETAMINE PO SCH (09:00)
[2017-12-16] MEDS: SODIUM CHLORIDE 0.9% FLUSH 10 ML FLUSH IV FLUSH SCH ×2 (09:00→20:07)
[2017-12-16] MEDS: DOCUSATE SODIUM 50 MG/SENNA 8.6 MG TAB PO SCH ×3 (09:00→20:07)
[2017-12-16] MEDS: NYSTAT/DIPHENHY/LIDO MOUTHWASH (Adult) 120ML SWISH-SWAL SCH ×4 (09:11→20:07)
[2017-12-16] MEDS: FLUCONAZOLE 100 MG TAB PO SCH (09:13)
[2017-12-16] MEDS: LACTOBACILLUS ACIDOPHILUS TAB PO SCH ×3 (09:13→17:13)
[2017-12-16] MEDS: SODIUM CHLOR 0.9% 1000 ML INJ 1,000 ML IV SCH (09:14)
[2017-12-16] MEDS: predniSONE 20 MG TAB PO SCH (09:14)
[2017-12-16] MEDS: DOXYCYCLINE HYCLATE 100 MG TAB PO SCH ×2 (09:15→20:08)
[2017-12-16] MEDS: NYSTATIN SUSP 500,000 U/5 ML CUP SWISH-SWAL SCH ×2 (09:15→12:15)
[2017-12-16 11:45] VITALS: BP 104/57; PULSE 92; RESP 18; TEMP 97.2; O2SAT 98
--- NOTE | 2017-12-16 12:54 | PD.ID.CON ---
History of Present Illness Service ID Consult Requested By Reason for Consult Evaluation and Mment of Esophagitis in a patient with high risk factors. Primary Care Physician Papito Mcmullen DO Diagnoses: History of Present Illness is a 37 y/o CF with with PMHx of being treated for PID when spouse diagnosed with PID. She reports being treated by her PCP empirically treated her for Gonorrhea. She reports being but not from her . She reports being sexually active with multiple partners (over 70 partners over the years). She reports 12 sexual partners prior to her being and 7 others after. She reports writing to her sexual partners. She was treated with Rocephin and azithromycin per her report. At that time she had abdominal pain but denies any fever, she states that her discharge improved but she still had low-grade pelvic pain. Over the past week she has been feeling abdominal discomfort, lower extremity soreness, chills, fever and dizzy. She has decreased appetite and some nausea, no emesis diarrhea constipation, denies cough, congestion or chest pain. She does say that her sore throat and her lower back pain are the most bothersome symptoms at this time. She reports difficulty swallowing but denies painful swallowing for several weeks. Self reports prior h/o bulimia. She denies any dysuria, urgency or frequency. She denies any discharge or lesions in private parts. She defers genital exam and reports Core Oven Tender saw her. She denies any history of STI's, in the past months she has been active with 3- 4 new partners using condoms inconsistently. She does not use anything other than condoms to prevent . She does not desire any for future children. She has not seen a head housekeeper in over 11 years. She has regular monthly cycles, however she states her current cycle is happening a week earlier than she typically expects. ID is consulted for evaluation and Mment of Esophagitis in a patient with high risk factors for STDs. Review of Systems Constitutional: COMPLAINS OF: Fatigue, Fever, Chills, DENIES: Diaphoretic episodes, Weight gain, Weight loss, Dizziness, Change in appetite, Night Sweats Endocrine: DENIES: Abnorml menstrual pattern, Heat/cold intolerance, Polydipsia , Polyuria, Polyphagia Eyes: DENIES: Blurred vision, Diplopia, Eye inflammation, Eye pain, Vision loss , Photosensitivity, Double Vision Ears, nose, mouth, throat: COMPLAINS OF: Oral lesions (left lip sore), Throat pain, DENIES: Tinnitus, Hearing loss, Vertigo, Nasal discharge, Hoarseness, Ear Pain, Running Nose, Epistaxis, Sinus Pain, Toothache, Odynophagia Respiratory: DENIES: Apneas, Cough, Snoring, Wheezing, Hemoptysis, Sputum production, Shortness of breath Cardiovascular: DENIES: Chest pain, Palpitations, Syncope, Dyspnea on Exertion , PND, Lower Extremity Edema, Orthopnea, Claudication Gastrointestinal: COMPLAINS OF: Abdominal pain, DENIES: Black stools, Bloody stools, Constipation, Diarrhea, Nausea, Vomiting, Difficulty Swallowing, Anorexia Genitourinary: DENIES: Abnormal vaginal bleeding, Dysmenorrhea, Dyspareunia, Sexual dysfunction, Urinary frequency, Urinary incontinence, Urgency, Hematuria , Dysuria, Nocturia, Vaginal discharge Musculoskeletal: COMPLAINS OF: Joint pain, Muscle aches, DENIES: Stiffness, Joint Swelling, Back pain, Neck pain Integumentary: DENIES: Abnormal pigmentation, Pruritus, Rash, Nail changes, Breast masses, Breast skin changes, Nipple discharge Hematologic/lymphatic: DENIES: Bruising, Lymphadenopathy Immunologic/allergic: DENIES: Eczema, Urticaria Neurologic: DENIES: Abnormal gait, Headache, Localized weakness, Paresthesias, Seizures, Speech Problems, Tremor, Poor Balance Psychiatric: DENIES: Anxiety, Confusion, Mood changes, Depression, Hallucinations, Agitation, Suicidal Ideation, Homicidal Ideation, Delusions Except as stated in HPI: all other systems reviewed are Neg Past Family Social History Allergies: Coded Allergies: No Known Allergies (Unverified Allergy, Unknown, 12/13/17) Past Medical History ADHD on Adderall. Recent h/o empiric STD treatment. Past Surgical History None per patient. Reported Medications Reported Meds & Active Scripts Active Reported Adderall Xr 24 HR (Amphetamine/Dextroamphetamine) 30 Mg Cap 60 Mg PO DAILY Once daily in the morning. Active Ordered Medications Current Medications Medications (Trade) Dose Ordered Sig/Roselia Route Start Time Stop Time Status Last Admin (Xanax) 0.25 mg Q8H PRN PO 12/13/17 21:45 12/14/17 20:35 Sodium Chloride 1,000 ml @ 100 mls/hr Q10H IV 12/13/17 21:39 12/16/17 09:14 (NS Flush) 2 ml UNSCH PRN IV FLUSH 12/13/17 21:45 (NS Flush) 2 ml BID IV FLUSH 12/14/17 09:00 12/15/17 21:12 (Tylenol) 650 mg Q6H PRN PO 12/13/17 21:45 12/14/17 14:16 (Ely-Colace) 1 tab BID PO 12/14/17 09:00 12/15/17 21:11 (Milk Of Magnesia Liq) 30 ml Q12H PRN PO 12/13/17 21:45 (Senokot) 17.2 mg Q12H PRN PO 12/13/17 21:45 (Dulcolax Supp) 10 mg DAILY PRN RECTAL 12/13/17 21:45 (Lactulose Liq) 30 ml DAILY PRN PO 12/13/17 21:45 (Mycostatin Liq) 5 ml QID SWISH-SWAL 12/14/17 09:00 12/16/17 09:15 (Diflucan) 150 mg DAILY PO 12/14/17 09:00 12/16/17 09:13 (Vibratab) 100 mg BID PO 12/14/17 21:00 12/16/17 09:15 Cefoxitin Sodium 2 gm/Sodium Chloride 100 ml @ 200 mls/hr Q6H IV 12/14/17 12:00 12/16/17 12:19 (Deltasone) 20 mg DAILY PO 12/15/17 09:00 12/16/17 09:14 (Chloraseptic Zbigniew) 1 lozenge UNSCH PRN BUCCAL 12/15/17 08:45 12/15/17 10:24 Patient Own Medication PT OWN MED: DEXTROAMPHETAMINE-AMP... DAILY PO 12/16/17 09:00 (Magic Mouthwash Adult Liq) 5 ml QID SWISH-SWAL 12/15/17 13:00 12/16/17 12:19 (Lactinex) 1 tab TID PO 12/15/17 18:00 12/16/17 12:18 Penicillin G Potassium 1180013 units/Sodium Chloride 100 ml @ 200 mls/hr Q4H IV 12/15/17 18:00 12/16/17 09:14 Family History reviewed and NC Social History denies any drug abuse. Occ alcohol. Multiple Sexual partners. 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 Physical Exam Vital Signs Vital Signs Date Time Temp Pulse Resp B/P (MAP) Pulse Ox O2 Delivery O2 Flow Rate FiO2 12/16/17 11:45 97.2 92 18 104/57 (73) 98 12/16/17 07:50 97.5 88 18 108/6 (40) 99 12/16/17 00:00 98.4 75 20 107/58 (74) 98 12/15/17 20:00 97.3 86 20 110/55 (73) 97 12/15/17 15:51 97.2 88 18 101/65 (77) 97 Physical Exam GENERAL: This is a well-nourished, well-developed patient, in no apparent distress. SKIN: No rashes, ecchymoses or lesions. Cool and dry. HEAD: Atraumatic. Normocephalic. No temporal or scalp tenderness. EYES: Pupils equal round and reactive. Extraocular motions intact. No scleral icterus. No injection or drainage. ENT: Nose without bleeding, purulent drainage or septal hematoma. Throat without erythema, tonsillar hypertrophy or exudate. Uvula midline. Airway patent. NECK: Trachea midline. Supple, nontender, no meningeal signs. CARDIOVASCULAR: Regular rate and rhythm without murmurs, gallops, or rubs. RESPIRATORY: Clear to auscultation. Breath sounds equal bilaterally. No wheezes , rales, or rhonchi. GASTROINTESTINAL: Abdomen soft, non-tender, nondistended. MUSCULOSKELETAL: Extremities without clubbing, cyanosis, or edema. No joint tenderness, effusion, or edema noted. No calf tenderness. Negative Homans sign bilaterally. NEUROLOGICAL: Awake and alert. Cranial nerves II through XII intact. Motor and sensory grossly within normal limits. Five out of 5 muscle strength in all muscle groups. Normal speech. Psych cooperative, easily cries. Appears anxious at times. IV line sites with no e.o infection Laboratory Date/Time Source Procedure Growth Status 12/13/17 19:32 Blood Peripheral Aerobic Blood Culture - Preliminary NO GROWTH IN 3 DAYS Resulted 12/13/17 19:32 Blood Peripheral Anaerobic Blood Culture - Preliminary NO GROWTH IN 3 DAYS Resulted 12/13/17 17:30 Throat Group A Streptococcus Screen - Final Positive - Group C Beta Strep Complete Result Diagram: 12/14/17 0649 12/14/17 0649 Imaging Last Impressions Pelvis Ultrasound 12/14/17 0000 Signed Impressions: CONCLUSION: 1. Unusual appearance to the cervix; cannot exclude a 2.9 cm mass. 2. No endometrial fluid. 3. Ovarian cysts measuring 1 cm or less. Abdomen/Pelvis CT 12/14/17 0000 Signed Impressions: CONCLUSION: 1. Calcified left adrenal gland probably manifestation of prior hemorrhage. 2. Otherwise negative CT abdomen/pelvis with contrast. Chest X-Ray 12/13/17 0000 Signed Impressions: CONCLUSION: No active disease. Assessment and Plan Assessment and Plan Esophagitis/odynphagia: h/o bulimia, ? infectious etiology ? GERD. Clinical suspicion of PID. Mass on cervix: Core Oven Tender on board. R.o cervical cancer. High risk for STD and HIV. Recent treatment for gonorrhea Group C strep positive. recs HIV DNA PCR CD4 Gonorrhea and other STD oral screen. Reviewed other STD workup and Core Oven Tender note. GI consult: Esophagitis consider EGD. h/o bulimia and oral sex. DC Cefoxitin DC Penicillin Continue Doxy oral x 14 days Start Flagyl x 14 days Follow clinically. dw : if GI will do EGD outpatient ok to DC from ID standpoint. Needs GI, Core Oven Tender, Psych eval for high risk behavior and other issues like anxiety and ID followups as outpatient. Outpt ID follow up with Dr.Reba Gonsalez. Follow up with PCP as well. Jessie Green MD Dec 16, 2017 12:54
[2017-12-16] MEDS: metroNIDAZOLE 500 MG TAB PO SCH ×2 (14:50→21:37)
--- NOTE | 2017-12-16 15:16 | HHI.PR ---
Subjective Remarks Follow up for PID, suspected sexually transmitted disease, possible HIV. Patient is currently resting in bed. No fever or chills. Objective Vitals Vital Signs Date Time Temp Pulse Resp B/P (MAP) Pulse Ox O2 Delivery O2 Flow Rate FiO2 12/16/17 11:45 97.2 92 18 104/57 (73) 98 12/16/17 07:50 97.5 88 18 108/6 (40) 99 12/16/17 00:00 98.4 75 20 107/58 (74) 98 12/15/17 20:00 97.3 86 20 110/55 (73) 97 12/15/17 15:51 97.2 88 18 101/65 (77) 97 I/O 12/15/17 12/15/17 12/15/17 12/16/17 12/16/17 12/16/17 07:00 15:00 23:00 07:00 15:00 23:00 Intake Total 240 ml 400 ml 1300 ml 900 ml 1000 ml Balance 240 ml 400 ml 1300 ml 900 ml 1000 ml Intake Oral 240 ml 600 ml IV Total 400 ml 700 ml 900 ml 1000 ml # Voids 2 3 # Bowel Movements 0 Result Diagram: 12/14/17 0649 12/14/17 0649 Imaging Last Impressions Pelvis Ultrasound 12/14/17 0000 Signed Impressions: CONCLUSION: 1. Unusual appearance to the cervix; cannot exclude a 2.9 cm mass. 2. No endometrial fluid. 3. Ovarian cysts measuring 1 cm or less. Abdomen/Pelvis CT 12/14/17 0000 Signed Impressions: CONCLUSION: 1. Calcified left adrenal gland probably manifestation of prior hemorrhage. 2. Otherwise negative CT abdomen/pelvis with contrast. Chest X-Ray 12/13/17 0000 Signed Impressions: CONCLUSION: No active disease. Objective Remarks GENERAL: Alert, oriented 3, NAD. SKIN: Warm and dry. HEAD: Normocephalic. EYES: No scleral icterus. No injection or drainage. NECK: Supple, trachea midline. No JVD or lymphadenopathy. CARDIOVASCULAR: Regular rate and rhythm without murmurs, gallops, or rubs. RESPIRATORY: Breath sounds equal bilaterally. No accessory muscle use. GASTROINTESTINAL: Abdomen soft, non-tender, nondistended. MUSCULOSKELETAL: No cyanosis, or edema. BACK: Nontender without obvious deformity. No CVA tenderness. Procedures None A/P Problem List: (1) SIRS (systemic inflammatory response syndrome) ICD Code: R65.10 - Systemic inflammatory response syndrome (SIRS) of non- infectious origin without acute organ dysfunction Status: Acute (2) PID (acute pelvic inflammatory disease) ICD Code: N73.0 - Acute parametritis and pelvic cellulitis Assessment and Plan Ms. Wyatt is a 37-year-old female with a history of high risk sexual behavior who was admitted to the hospital due to shaking chills, polyarthritis, generalized pain. She was recently treated for gonorrhea in the outpatient setting. Possible pelvic inflammatory disease Cervical mass 2.9 cm -Appreciate BEEF CATTLE FARM WORKER input. -We will continue doxycycline for 14 days as well as Flagyl for 14 days. -Outpatient follow-up with BEEF CATTLE FARM WORKER with regards to cervical mass and PID Gonorrhea -patient was treated in the outpatient setting with ceftriaxone and azithromycin. Suspected HIV Probable esophagitis Odynophagia -HIV screening was negative. However suspicion is high due to patient's clinical symptoms. -ID was consulted today. Per ID recommendations, will obtain HIV DNA PCR and CD4 count. -We will consult GI for esophagitis, odynophagia -If GI can perform EGD in the outpatient setting, patient can be discharged with follow-up with GI, BEEF CATTLE FARM WORKER and infectious disease. -Continue Diflucan 150 daily as well as Doxycycline and Flagyl. Full code. SCDs. Doe Marr DO Dec 16, 2017 15:16
[2017-12-16 16:01] VITALS: BP 113/72; PULSE 87; RESP 18; TEMP 97.9; O2SAT 97
[2017-12-16 20:00] VITALS: BP 102/65; PULSE 72; RESP 20; TEMP 97.9; O2SAT 100
[2017-12-17] VITALS: BP 99/62; PULSE 87; RESP 20; TEMP 97.5; O2SAT 99
[2017-12-17] MEDS: metroNIDAZOLE 500 MG TAB PO SCH ×2 (05:54→12:49)
[2017-12-17] MEDS: FLUCONAZOLE 100 MG TAB PO SCH (08:16)
[2017-12-17] MEDS: DOXYCYCLINE HYCLATE 100 MG TAB PO SCH (08:16)
[2017-12-17] MEDS: predniSONE 20 MG TAB PO SCH (08:16)
[2017-12-17] MEDS: LACTOBACILLUS ACIDOPHILUS TAB PO SCH ×2 (08:16→12:50)
[2017-12-17] MEDS: SODIUM CHLORIDE 0.9% FLUSH 10 ML FLUSH IV FLUSH SCH (08:17)
[2017-12-17] MEDS: NYSTAT/DIPHENHY/LIDO MOUTHWASH (Adult) 120ML SWISH-SWAL SCH ×4 (08:17→12:54)
[2017-12-17] MEDS: DEXTROAMPHETAMINE AMPHETAMINE PO SCH (08:17)
[2017-12-17] MEDS: DOCUSATE SODIUM 50 MG/SENNA 8.6 MG TAB PO SCH (08:17)
[2017-12-17 09:00] VITALS: BP 93/62; PULSE 83; RESP 16; TEMP 97; O2SAT 100
[2017-12-17 11:04] LABS: BASOPHIL % 0.3 % (0.0-2.0); EOSINOPHIL # 0.1 TH/MM3 (0-0.4); EOSINOPHIL % 0.6 % (0.0-4.0); HEMOGLOBIN 11.1 GM/DL (11.6-15.3); LYMPH % 14.1 % (9.0-44.0); LYMPHOCYTE # 1.2 TH/MM3 (1.0-4.8); MEAN CELL VOLUME 92.5 FL (80.0-100.0); MEAN CORPUSCULAR HEMOGLOBIN 30.2 PG (27.0-34.0); MEAN CORPUSCULAR HGB CONC 32.6 % (32.0-36.0); MEAN PLATELET VOLUME 7.6 FL (7.0-11.0); MONO % 2.7 % (0.0-8.0); MONOCYTE # 0.2 TH/MM3 (0-0.9); NEUT % 82.3 % (16.0-70.0); PLATELET COUNT 209 TH/MM3 (150-450); RED BLOOD COUNT 3.67 MIL/MM3 (4.00-5.30); RED CELL DISTRIBUTION WIDTH 11.9 % (11.6-17.2); WHITE BLOOD COUNT 8.5 TH/MM3 (4.0-11.0)
[2017-12-17 12:00] VITALS: BP 124/87; PULSE 86; RESP 16; TEMP 97.6; O2SAT 98
[2017-12-17] MEDS ORDERED: METR-1 PO (13:23)
[2017-12-17] MEDS ORDERED: DOXY100T PO (13:23)
[2017-12-17] MEDS ORDERED: DIFL100T PO ×2 (13:23→13:29)
--- NOTE | 2017-12-17 23:05 | HHI.DS ---
Discharge Summary Admission Date Dec 14, 2017 at 13:31 Discharge Date: Dec 17, 2017 Admitting Diagnosis SIRS, conversion reaction, inability to move arms or legs (1) SIRS (systemic inflammatory response syndrome) ICD Code: R65.10 - Systemic inflammatory response syndrome (SIRS) of non- infectious origin without acute organ dysfunction Status: Acute (2) PID (acute pelvic inflammatory disease) ICD Code: N73.0 - Acute parametritis and pelvic cellulitis Procedures None Brief History - From Admission This is a 37-year-old female patient with a known medical history of ADHD presented to the ED with sudden onset of fever, chills, sore throat and generalized muscle aches as well as continued vaginal discharge from recent diagnosis of gonorrhea. Patient was recently treated for gonorrhea 2 weeks ago , finished dose of azithromycin completely as well as given 1 dose of Rocephin IM. Since that time patient states she did feel improved after antibiotics although her vaginal discharge continued. She does admit to a subjective fever of 101 at home. She does admit to poor appetite for the last couple days. Does admit to associated fever, chills, rigors, dizziness. She denies any dysuria. Denies any nausea, vomiting or diarrhea. Patient does not follow with the PRISON GUARD SUPERVISOR, denies any recent pelvic exam or Pap smear. It should be noted that patient is going through a separation with her and has recently been with a new sex partner. LMP was November 23, 2017. She is having active vaginal bleeding at this time. CBC/BMP: 12/17/17 1030 12/14/17 0649 Significant Findings Laboratory Tests Test 12/17/17 10:30 Red Blood Count 3.67 MIL/MM3 (4.00-5.30) Hemoglobin 11.1 GM/DL (11.6-15.3) Hematocrit 34.0 % (35.0-46.0) Neutrophils (%) (Auto) 82.3 % (16.0-70.0) Imaging Last Impressions Pelvis Ultrasound 12/14/17 0000 Signed Impressions: CONCLUSION: 1. Unusual appearance to the cervix; cannot exclude a 2.9 cm mass. 2. No endometrial fluid. 3. Ovarian cysts measuring 1 cm or less. Abdomen/Pelvis CT 12/14/17 0000 Signed Impressions: CONCLUSION: 1. Calcified left adrenal gland probably manifestation of prior hemorrhage. 2. Otherwise negative CT abdomen/pelvis with contrast. Chest X-Ray 12/13/17 0000 Signed Impressions: CONCLUSION: No active disease. PE at Discharge GENERAL: Alert, oriented 3, NAD. SKIN: Warm and dry. HEAD: Normocephalic. EYES: No scleral icterus. No injection or drainage. NECK: Supple, trachea midline. No JVD or lymphadenopathy. CARDIOVASCULAR: Regular rate and rhythm without murmurs, gallops, or rubs. RESPIRATORY: Breath sounds equal bilaterally. No accessory muscle use. GASTROINTESTINAL: Abdomen soft, non-tender, nondistended. MUSCULOSKELETAL: No cyanosis, or edema. BACK: Nontender without obvious deformity. No CVA tenderness. Pt update on day of discharge Patient reports feeling generalized fatigue. No fever, chills. She continues to have some odynophagia. She, however, wants to go home and follow up with ID and GI in the outpatient setting. Hospital Course Ms. Wyatt is a 37-year-old female with a history of high risk sexual behavior who was admitted to the hospital due to shaking chills, polyarthritis, generalized pain. She was recently treated for gonorrhea in the outpatient setting. Possible pelvic inflammatory disease Cervical mass 2.9 cm -Appreciate HYDROTHERAPIST input. -We will continue doxycycline for 14 days as well as Flagyl for 14 days. -Outpatient follow-up with HYDROTHERAPIST with regards to cervical mass and PID Gonorrhea -patient was treated in the outpatient setting with ceftriaxone and azithromycin. Suspected HIV Probable esophagitis Odynophagia -HIV screening was negative. However suspicion is high due to patient's clinical symptoms. -ID was consulted. Per ID recommendations, will obtain HIV DNA PCR and CD4 count. -I discussed with GI who recommended outpatient evaluation for Esophagitis. -Will d/c patient with follow-up with GI, HYDROTHERAPIST and infectious disease. -Continue Diflucan 150 daily as well as Doxycycline and Flagyl. Full code. SCDs. Pt Condition on Discharge: Good Discharge Disposition: Discharge Home Discharge Time: > 30 minutes Discharge Instructions DIET: Follow Instructions for: As Tolerated, No Restrictions Activities you can perform: Regular-No Restrictions Follow up Referrals: Gastroenterology - 10 Days @ [facility] Infectious Disease - 1 Week with Ashleigh Gonsalez MD HYDROTHERAPIST - 2 Weeks @ [facility] with Asim Ronquillo MD PCP Follow-up - 1 Week Psychiatry Adult - 10 Days New Medications: Doxycycline Hyclate (Doxycycline Hyclate) 100 Mg Tab 100 MG PO BID for Infection, #28 TAB Fluconazole (Diflucan) 100 Mg Tab 150 MG PO DAILY for Infection for 14 Days, #21 TAB Metronidazole (Flagyl) 500 Mg Tab 500 MG PO Q8HR for Infection for 14 Days, #42 TAB Discontinued Medications: Amphetamine-Dextroamphetamine ER 24 HR (Adderall Xr 24 HR) 30 Mg Cap 60 MG PO DAILY for Hyperactivity Control, #30 CAP 0 Refills Once daily in the morning. Doe Marr DO Dec 17, 2017 23:05
== END 2017-12-17 13:53 | disposition home or self-care (01) | DRG 758 ==
LOC: PHED 17:01 → PHEDA 21:38 → PH3B 22:12 → OBSVTOIN 12-14 13:31
PROVIDERS: ADMIT Hospitalist; ATTEND Hospitalist
DX: N73.9 Female pelvic inflammatory disease, unspecified (principal); A54.9 Gonococcal infection, unspecified; B37.0 Candidal stomatitis; F90.9 Attention-deficit hyperactivity disorder, unspecified type; F44.9 Dissociative and conversion disorder, unspecified; F41.9 Anxiety disorder, unspecified; F17.210 Nicotine dependence, cigarettes, uncomplicated; R00.0 Tachycardia, unspecified; J02.0 Streptococcal pharyngitis; K21.0 Gastro-esophageal reflux disease with esophagitis; M13.0 Polyarthritis, unspecified; Z86.59 Personal history of other mental and behavioral disorders
CPT/HCPCS: 71046; 74177; 76830; 76856; 76937; 80053; 81001; 82550; 83036; 83605; 83735; 84100; 84702; 84703; 85025; 86355; 86357; 86359; 86360; 86592; 86803; 87040; 87081; 87210; 87340; 87389; 87491; 87535; 87536; 87591; 87804; 87880; G0475; G8987-GP; G8988-GP; J0694; J0696; J2540; J7030; J7512; Q9963; Q9967